=== PATIENT | male | born 1950 | race American Indian/Alaskan Native ===

== ENCOUNTER 2018-01-31 07:34 | Outpatient (CLI) | payer MEDICARE ==
--- NOTE | 2018-01-31 12:48 | XRay Report ---
XRAY LEFT KNEE 4 THREE VIEWS: 01/31/18 CLINICAL: Left knee pain. FINDINGS: Osteoarthritis with complete loss of the medial joint space, mild varus deformity, large medial osteophytes and slight widening of the lateral joint space with a small lateral osteophyte.No fracture or dislocation. Small patellofemoral joint osteophytes. No joint effusion.Normal soft tissues. IMPRESSION: Severe osteoarthritis involving the medial joint.
== END 2018-01-31 07:35 | disposition home or self-care (01) ==
LOC: SPVIMAG 07:34
PROVIDERS: ATTEND Orthopaedic Surgery
DX: M17.12 Unilateral primary osteoarthritis, left knee (principal)